=== PATIENT | male | born 1995 | race Caucasian/White ===

== ENCOUNTER 2024-12-18 01:24 | Emergency (ER) | payer BC, MEDICAID, OTHER ==
[~2024-12-18] VITALS: Ht 175.3 cm; Wt 90.0 kg
[2024-12-18 01:25] VITALS: O2SAT 100
[2024-12-18 01:58] VITALS: TEMP 36.8
[2024-12-18 02:06] VITALS: TEMP 98.2
[2024-12-18] MEDS: ACETAMINOPHEN 325MG TABLET PO ONE (02:06)
[2024-12-18] MEDS: LIDOCAINE 5% PATCH TOP SCH (02:08)
[2024-12-18] MEDS ORDERED: BACL-141 MT (03:05)
[2024-12-18] MEDS ORDERED: IBUP-1455 MT (03:05)
[2024-12-18] MEDS: KETOROLAC 30MG/ML VIAL IM NR (03:39)
[2024-12-18 03:40] VITALS: BP 104/67; PULSE 93; RESP 18; O2SAT 100
== END 2024-12-18 04:10 | disposition home or self-care (01) ==
LOC: ER 01:24
DX: S13.4XXA Sprain of ligaments of cervical spine, initial encounter (principal); S06.0XAA Concussion with loss of consciousness status unknown, initial encounter; S20.219A Contusion of unspecified front wall of thorax, initial encounter; V89.2XXA Person injured in unspecified motor-vehicle accident, traffic, initial encounter; Y92.410 Unspecified street and highway as the place of occurrence of the external cause; Y93.89 Activity, other specified; Y99.8 Other external cause status
CPT/HCPCS: 70450; 71250; 93005; 96372; 99285; J1885; Z7610